=== PATIENT | male | born 1985 | race Asian ===

== ENCOUNTER 2020-08-12 10:08 | Emergency (ER) | payer OTHER ==
[~2020-08-12] VITALS: Ht 175.3 cm; Wt 75.0 kg
[2020-08-12 10:09] VITALS: BP 127/79
== END 2020-08-12 10:43 | disposition home or self-care (01) ==
LOC: EMS 10:12
DX: B00.1 Herpesviral vesicular dermatitis (principal); F17.210 Nicotine dependence, cigarettes, uncomplicated; F12.90 Cannabis use, unspecified, uncomplicated
CPT/HCPCS: 99283